=== PATIENT | female | born 1965 | race African-American/Black ===

== ENCOUNTER 2021-06-13 20:57 | Emergency (ER) | payer MEDICAID, SELFPAY ==
--- NOTE | ~2021-06-13 | XR_ITS ---
EXAMINATION: XR foot LT min 3V DATE: 06/13/2021 22:05 INDICATION: Left foot pain TECHNIQUE: Dorsoplantar, lateral, and 2 oblique views of the left foot were obtained. COMPARISON: None. FINDINGS: There is dorsal soft tissue swelling of the foot. No fracture, dislocation, or subluxation is identified. The joint spaces are unremarkable. IMPRESSION: 1. Soft tissue swelling without acute osseous abnormality. Reviewed, dictated and finalized at location F.
[2021-06-13 21:16] VITALS: BP 187/73; PULSE 66; RESP 18; TEMP 36.9; O2SAT 100
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
[2021-06-13] MEDS: ACETAMINOPHEN 500 MG TABLET 1000 MG PO (23:46)
[2021-06-13] MEDS: KETOROLAC (*BKC) 60 MG/2 ML VIAL IM (23:48)
[2021-06-14 00:16] VITALS: BP 138/70; PULSE 70; RESP 16; O2SAT 98
== END 2021-06-14 00:20 | disposition home or self-care (01) ==
PROVIDERS: Emergency Provider Emergency Medicine
DX: M79.672 Pain in left foot (principal); I10 Essential (primary) hypertension; Z91.012 Allergy to eggs
CPT/HCPCS: 73630; 96372; 99283; A9270; J1885